=== PATIENT | female | born 1985 | race Caucasian/White ===

== ENCOUNTER 2016-04-17 11:49 | Emergency (ER) | payer OTHER ==
[2016-04-17 12:12] VITALS: BP 120/79
--- NOTE | 2016-04-17 12:46 | ERNOTE ---
Date of Service: 04/17/16 Time Seen by Provider: 04/17/16 12:27 Stated Complaint: COUGH Presenting Symptoms:: cough Source: patient Exam Limitations: no limitations Immunizations: IMMUNIZATION HX Immunizations Up to Date Yes History of Influenza Vaccine No Hx Pneumococcal Vaccination No Allergies/Adverse Reactions: Allergies codeine Allergy (Verified 04/17/16 12:12) Home Medications: HOME MEDICATIONS ALPRAZolam [Xanax] 0.5 mg PO QID PRN 06/07/15 [Last Taken 07/30/15 21:00] Cyclobenzaprine HCl [Flexeril] 10 mg PO HS 07/31/15 [Last Taken 07/30/15 10mg] Albuterol Sulfate [Proair Hfa] 2 puff IH Q4H PRN #1 inhaler 04/17/16 [Last Taken Unknown] Azithromycin [Zithromax] 500 mg PO NOW #6 tab 04/17/16 [Last Taken Unknown] - History of Present Ilness Narrative: Patient presents to the ED for cough. She has been coughing for 1.5 weeks. Has been exposed to bronchitis. No fever. No vomiting. Nasal congestion. She has not seen anyone else for this. She is being seen here with her son who also has a cough. No SOB. No abdominal pain. No trouble swallowing. Timing: constant Severity: moderate Frequency/Possible Cause: Reports: other - denies chronic bronchitis Modifying Factors - Improves: Reports: nothing Modifying Factors - Worsens: Reports: nothing Associated Symptoms: Reports: cough, nasal congestion. Denies: chest pain/ soreness, shortness of breath, wheezing, sore throat, fever/chills Prior Treatment: Denies: recently seen Review of Systems - Review of Systems Constitutional: Absent: fever ENT: Present: See HPI Respiratory: Present: See HPI Cardiology: Present: See HPI Gastrointestinal/Abdominal: Present: no symptoms reported - Patient's Past Medical History Patient History - Medical: Anxiety, Depression Patient History - Cardiac/Respiratory: No pertinent hx Patient History - Cancer: No Hx of Cancer Patient History - Surgical Procedures: Patient History - Other: None LMP (females 10-50): last week LMP (Calendar): 05/17/15 - Family History Mother Family History - Medical: Diabetes Type 1, Diabetes Type 2, Depression Father Family History - Medical: No pertinent hx Family History - Cardiac/Respiratory: No pertinent hx - Social History Living Situations: home Does anyone smoke in the home?: No Alcohol Use: none Drug Use: none - Immunizations Immunizations Up to Date: Yes Hx Pneumococcal Vaccination: No History of Influenza Vaccine: No Physical Exam - Physical Exam General Appearance: Present: alert, no apparent distress, other - non-toxic, no distress. Speaking in full sentences. Eye Exam: Normal inspection: bilateral, PERRL: bilateral Ears, Nose, Throat: Present: nasal congestion, normal pharynx, other - nasal congestion. Absent: abnormal TM (R), abnormal TM (L), pharyngeal erythema, pharyngeal swelling, tonsillar exudate, tonsillar swelling Neck: Present: normal inspection Respiratory: Present: no respiratory distress, normal breath sounds, no accessory muscle use, lungs clear, other - occasional cough. 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 Vital Signs: Vital Signs 04/17/16 04/17/16 12:09 12:29 Temperature 36.7 C Pulse Rate 89 89 Respiratory 16 Rate Blood Pressure 120/79 O2 Sat by Pulse 98 Oximetry - Progress/Reassessment Chief Complaint: Upper Respiratory Symptoms Progress Note-Subjective: 04/17/16 12:42 Stable, non-toxic, no distress Departure - Departure Clinical Impression: Bronchitis Disposition: Home self-care Condition: Stable Instructions: Acute Bronchitis Additional Instructions: Rest. Fluids. See your doctor within 3 days for a re-check. Return for fever , trouble breathing or if your condition worsens or changes in any way. Referrals: Geraldo Liu MD [Primary Care Provider] - Prescriptions: Albuterol Sulfate [Proair Hfa] 2 puff IH Q4H PRN #1 inhaler PRN Reason: Cough Azithromycin [Zithromax] 500 mg PO NOW #6 tab
== END 2016-04-17 13:06 | disposition home or self-care (01) ==
LOC: ER 11:49
DX: J20.9 Acute bronchitis, unspecified (principal); F41.9 Anxiety disorder, unspecified

== ENCOUNTER 2016-08-11 08:28 | Emergency (ER) | payer OTHER ==
[2016-08-11 10:01] LABS: Hemoglobin 13.4 gm/dL (12.5-16.0); Mean Cell Volume 91.7 fl (78-100); Mean Corpuscular Hemoglobin 29.3 pg (27-31); Mean Corpuscular Hgb Conc 31.9 g/dl (32-36); Mean Platelet Volume 9.8 fl (6.0-9.5); Platelet Count 292 K/mm3 (150-450); Red Blood Count 4.58 M/mm3 (4.2-5.4); Red Cell Distribution Width 13.6 % (11.5-14.0); White Blood Count 7.9 K/mm3 (4.0-10.5)
[2016-08-11 10:03] LABS: Urine Bilirubin Negative (NEGATIVE); Urine Blood 50 /ul (NEGATIVE); Urine Ketone Negative (NEGATIVE); Urine Nitrite Negative (NEGATIVE); Urine Protein Negative (NEGATIVE); Urine Urobilinogen Normal (NORMAL)
[2016-08-11 10:15] LABS: Albumin * 3.4 gm/dl (3.4-5.0); Anion Gap 9.4 mmol/L (6.8-13.8); BUN/Creatinine Ratio 9.7 (9.0-21.6); Bilirubin, Total 0.3 mg/dL (0.0-1.1); Ca. Corrected For Albumin 9.1 mg/dL (8.4-10.2); Calcium * 8.9 mg/dL (7.9-10.9); Carbon Dioxide 30.7 mmol/L (24-32.6); Potassium 4.1 mmol/L (3.4-4.6); Total Protein 7.5 gm/dL (6.2-8.2)
[2016-08-11 10:18] LABS: Urine Appearance Slightly Cloudy; Urine Bacteria TRACE; Urine Color Yellow; Urine WBC None Seen /hpf (0-5)
--- NOTE | 2016-08-11 10:35 | ERNOTE ---
Abdominal HPI - Narrative Date of Service: 08/11/16 - General Chief Complaint: Abdominal Pain Time Seen by Provider: 08/11/16 10:05 Source: patient, RN notes reviewed, past records Exam Limitations: no limitations - Immun/Allergies/Home Medications Immunizatons: IMMUNIZATION HX Immunizations Up to Date Yes History of Influenza Vaccine Yes Hx Pneumococcal Vaccination Yes Allergies/Adverse Reactions: Allergies codeine Allergy (Verified 08/11/16 08:42) Home Medications: HOME MEDICATIONS Cyclobenzaprine HCl [Flexeril] 10 mg PO HS 07/31/15 [Last Taken 07/30/15 10mg] Desvenlafaxine Succinate [Pristiq] 50 mg PO DAILY 08/11/16 [Last Taken Unknown] Mirtazapine [Remeron] 15 mg PO HS 08/11/16 [Last Taken Unknown] clonazePAM [Klonopin] 0.5 mg PO HS 08/11/16 [Last Taken Unknown] - History of Present Illness Narrative: Arabella is a 31-year-old female ambulatory to the emergency department for left lower quadrant abdominal pain that began early yesterday morning. She reports having polycystic ovarian syndrome and has had similar pain with cysts in the past. She describes the pain as crampy and sharp. It does not radiate. She reports having a normal bowel movement 3 times yesterday. She denies any nausea , vomiting, chills or fevers. The pain has not affected her oral intake. She reports eating breakfast without incident this morning. Her menses ended 2 days ago. She reports that her period lasted a week as it normally does, but was sole rounder than normal. She has not taken anything for pain, and she denies the need for any pain medication on initial evaluation. Date (Duration): 08/10/16 Time (Timing): 07:00 Timing: constant Quality: moderate, cramping, sharpness Activities at Onset: none Modifying Factors - (Improves): Present: other - nothing. Absent: defecating, eating, rest Modifying Factors - (Worsens): Present: breathing, coughing, movement. Absent: eating, urinating Associated Symptoms: Absent: headache, back pain, diarrhea-gross blood, diarrhea -mucous, fever/chills, nausea, vomiting, loss of appetite Prior Abdominal Problems: Present: similar symptoms - ovarian cyst Prior Treatment: Absent: recently seen Review of Systems - Review of Systems Constitutional: Present: See HPI EYE: Present: no symptoms reported ENT: Absent: nose congestion, sore throat Respiratory: Absent: shortness of breath, cough Cardiology: Present: no symptoms reported Gastrointestinal/Abdominal: Present: See HPI Genitourinary: Absent: frequency, dysuria, hematuria Musculoskeletal: Absent: back pain, muscle pain Skin: Absent: rash, lesions, lumps, change in color Neurological: Absent: headache, dizziness/light-headedness Endocrine: Present: no symptoms reported Hematologic/Lymphatic: Present: no symptoms reported Psych: Present: no symptoms reported - Patient's Past Medical History Patient History - Medical: ADHD, Anxiety, Chronic Pain - Back, Depression, Obesity, Other - PCOS Patient History - Cardiac/Respiratory: No pertinent hx Patient History - Cancer: No Hx of Cancer Patient History - Surgical Procedures: Patient History - Other: None LMP (females 10-50): last week LMP (Calendar): 08/02/16 - Family History Mother Family History - Medical: Diabetes Type 1, Diabetes Type 2, Depression Father Family History - Medical: No pertinent hx Family History - Cardiac/Respiratory: No pertinent hx - Social History Living Situations: home Abuse History: No History of abuse Psych History: Hx of Anxiety, Hx of Depression, Current tx/ever been on anti- depressants or anti-anxiety meds Does anyone smoke in the home?: No Smoking Status: Never smoker Alcohol Use: none Drug Use: none - Immunizations Immunizations Up to Date: Yes Hx Pneumococcal Vaccination: Yes History of Influenza Vaccine: Yes Physical Exam - Physical Exam General Appearance: Present: wd/wn, alert, no apparent distress, obese Eye Exam: Normal inspection: bilateral Neck: Present: normal inspection, nontender, supple, full range of motion Respiratory: Present: no respiratory distress, normal breath sounds, no accessory muscle use, lungs clear Cardiovascular/Chest: Present: regular rate, rhythm, no murmur, normal peripheral pulses Gastrointestinal/Abdominal: Present: normal bowel sounds, nondistended, soft, tenderness - moderate, LLQ. Absent: rebound, mass, hernia Back Exam: Present: normal inspection, no CVA tenderness Extremity Exam: Present: normal inspection, normal range of motion, no edema Neurological Exam: Present: alert, oriented, normal mood/affect, no motor/ sensory deficits Skin Exam: Present: normal color, warm/dry ED Progress - Results and Orders Patient's Lab Results:: I have reviewed the patient's lab results. - Vital Signs Patient's Vital Signs:: I have reviewed the patient's vital signs. Vital Signs: Vital Signs 08/11/16 08/11/16 08:32 09:50 Temperature 36.3 C L 36.4 C L Pulse Rate 95 93 Respiratory 16 14 Rate Blood Pressure 114/79 120/81 O2 Sat by Pulse 98 97 Oximetry - X-Ray X-Ray #1 X-Ray: abdomen Interpretation: Reviewed by me X-ray Comments: TECHNIQUE: AP upright and supine views of the abdomen were obtained, total of 4 images. COMPARISONS: None available. FINDINGS: Abdomen Flat W/ Upright *: No subdiaphragmatic free air. No abnormal dilation of large or small bowel. Mild stool retention suggestive within the colonic segments. There is a 2.6 mm calcification projecting just lateral to the lower sacrum on the left side, above the level of the ischial spine. Osseous structures are intact. IMPRESSION: 1. Stool retention suggestive of constipation. No evidence for obstruction. 2. 2.6 mm calcification of the left side of the pelvis as above. Consider left-sided distal ureteral calcification. Could also represent incidental phlebolith. Correlate clinically. Electronically signed by Jennifer Crews M.D.. - Progress/Reassessment Chief Complaint: Abdominal Pain Progress:: Unchanged Plan - Plan Plan: Labs are unremarkable aside from a small amount of blood on UA. Xray does show a 2.6 mm calcification in the left pelvis that could be a stone in the distal ureter, discussed with patient that this is small enough that it should pass without intervention if indeed she does have a calculus. Xray also notable for constipation, will d/c home with mag citrate to drink today. Discussed f/u if symptoms do not improve with treatment of stool retention, or if symptoms worsen. Departure - Departure Clinical Impression: Acute left lower quadrant pain Constipation Qualifiers: Constipation type: unspecified constipation type Qualified Code(s): K59.00 - Constipation, unspecified Disposition: Home Follow Up Needed Condition: Stable Instructions: Constipation, Adult, [id number] Additional Instructions: Take magnesium citrate when you get home, drink plenty of fluids Start fiber supplement as discussed Follow up here or with your doctor if symptoms continue or worsen Referrals: Geraldo Liu MD [Primary Care Provider] -
[2016-08-11] MEDS ORDERED: MAGNESIUM CITRATE 300 ML BTL PO ONE (11:16)
[2016-08-11] MEDS ORDERED: MAGNESIUM CITRATE 300 ML BTL ONE (11:19)
[2016-08-11 11:27] VITALS: BP 114/79
== END 2016-08-11 11:28 | disposition home or self-care (01) ==
LOC: ER 08:28
DX: K59.00 Constipation, unspecified (principal); R10.32 Left lower quadrant pain; F41.9 Anxiety disorder, unspecified; F32.9 Major depressive disorder, single episode, unspecified

== ENCOUNTER 2017-01-22 12:46 | Emergency (ER) | payer OTHER ==
[2017-01-22 12:57] VITALS: BP 137/80
--- NOTE | 2017-01-22 13:48 | ERNOTE ---
ENT HPI Presenting Symptoms: other - LEFT SIDED EAR PAIN Time Seen by Provider: 01/22/17 13:42 Source: patient Exam Limitations: no limitations - Immun/Allergies/Home Medications Immunizations: IMMUNIZATION HX Immunizations Up to Date Yes History of Influenza Vaccine No Hx Pneumococcal Vaccination No Allergies/Adverse Reactions: Allergies Allergy/AdvReac Type Severity Reaction Status Date / Time codeine Allergy Verified 08/11/16 08:42 Home Medications: HOME MEDICATIONS Cyclobenzaprine HCl [Flexeril] 10 mg PO HS 07/31/15 [Last Taken 07/30/15 10mg] Desvenlafaxine Succinate [Pristiq] 50 mg PO DAILY 08/11/16 [Last Taken Unknown] Mirtazapine [Remeron] 15 mg PO HS 08/11/16 [Last Taken Unknown] clonazePAM [Klonopin] 0.5 mg PO HS 08/11/16 [Last Taken Unknown] - History of Present Illness Narrative: Patient is a 31-year-old female who presents to the emergency room complaining of left-sided ear pain. Evidently she woke up in the morning and took a Q-tip and manipulated left year and saw some blood on the Q-tip. The reports muffled left ear sounds. But no discharge noted. Denies any nasal congestion, nasal discharge, ear discharge, hearing loss, fever, chills, night sweats ENT Location: Present: ear (L) Prearrival Treatment: Present: no prearrival treatment Review of Systems - Review of Systems Constitutional: Present: See HPI EYE: Present: no symptoms reported ENT: Present: See HPI Respiratory: Present: no symptoms reported Cardiology: Present: no symptoms reported Gastrointestinal/Abdominal: Present: no symptoms reported Musculoskeletal: Present: no symptoms reported Skin: Present: no symptoms reported - Patient's Past Medical History Patient History - Medical: ADHD, Anxiety, Chronic Pain, Depression, Obesity, Other Patient History - Cardiac/Respiratory: No pertinent hx Patient History - Cancer: No Hx of Cancer Patient History - Surgical Procedures: Patient History - Other: None LMP (females 10-50): 1 month - Family History Mother Family History - Medical: Diabetes Type 1, Diabetes Type 2, Depression Father Family History - Medical: No pertinent hx Family History - Cardiac/Respiratory: No pertinent hx - Social History Living Situations: home Abuse History: No History of abuse Psych History: Hx of Anxiety, Hx of Depression, Current tx/ever been on anti- depressants or anti-anxiety meds Smoking Status: Never smoker Have you smoked in the past 12 months: No Do you dip or chew tobacco: No Alcohol Use: rarely Drug Use: none - Immunizations Immunizations Up to Date: Yes Hx Pneumococcal Vaccination: No History of Influenza Vaccine: No Physical Exam - Physical Exam General Appearance: Present: wd/wn, alert, no apparent distress Head Exam: Present: normal inspection, no evidence of injury Eye Exam: PERRL: bilateral, EOMI: bilateral Ears, Nose, Throat: Present: normal ENT inspection Neck: Present: normal inspection, nontender Respiratory: Present: no respiratory distress, normal breath sounds Cardiovascular/Chest: Present: regular rate, rhythm, no murmur, normal peripheral pulses Gastrointestinal/Abdominal: Present: normal bowel sounds, nontender, nondistended Back Exam: Present: normal inspection, normal range of motion Extremity Exam: Present: normal inspection Neurological Exam: Present: alert, oriented, normal mood/affect, no motor/ sensory deficits ED Progress - Vital Signs Patient's Vital Signs:: I have reviewed the patient's vital signs. Vital Signs: Vital Signs 01/22/17 12:52 Temperature 36.2 C L Pulse Rate 104 H Respiratory 16 Rate Blood Pressure 137/80 O2 Sat by Pulse 97 Oximetry - Progress/Reassessment Chief Complaint: Earache Progress:: Unchanged Progress Note-Subjective: 01/22/17 13:47 Ear exam performed was unremarkable. Panic membrane is within normal limits with no effusion noted. The ear canal appears within normal limits. - Transfer of Care Expected Disposition: Discharge Departure Clinical Impression: Ear pain, left - Departure Disposition: Home Follow Up Needed Condition: Stable Instructions: Earache Print Language: German
== END 2017-01-22 13:57 | disposition home or self-care (01) ==
LOC: ER 12:46
DX: H92.02 Otalgia, left ear (principal); F32.9 Major depressive disorder, single episode, unspecified; F41.9 Anxiety disorder, unspecified